=== PATIENT | female | born 1965 | race Caucasian/White ===

== ENCOUNTER 2017-02-02 23:31 | Emergency (ER) | payer MEDICAID ==
[~2017-02-02] VITALS: Ht 165.1 cm; Wt 65.8 kg
[~2017-02-02 23:31] MED LIST: ADVAIR 100-501 EACH INH; ADVAIR 250-501 EACH INH; ADVAIR HFA 45-212 GM INH; AMBIEN10 M1 ORAL; AMITRIPTYLINE75 MG ORAL; ARTIFICIAL TEA1 EAC2 BOTH EYES; CALCIUM500 M3 PO; CLEOCIN150 MG ORAL; CLOZARIL25 MG ORAL; CYMBALTA60 MG ORAL; DIPHENHYDRAMINE25 M1 ORAL; DIVALPROEX SOD500 MG PO; ENEMA TWIN PAC133 ML RC; FLONASE1 SPRAYS; GABAPENTIN600 MG ORAL; KEFLEX500 MG ORAL; LACTULOSE20 GM/301 ORAL; MACROBID100 MG ORAL; METHOCARBAMOL750 MG ORAL; METROGEL-VAGINA70 G1 VAGIN; NORCO 5-325 TA1 EACH ORAL; NORCO 5-325 TA1 EACH PO; ONFI20 MG PO; OSTERA TABLET1 EACH PO; PLAVIX75 MG ORAL; RANITIDINE HCL150 M2 PO; SINGULAIR10 MG ORAL; SPIRIVA18 MCG INH; TRAZODONE HCL50 MG ORAL; TYLENOL650 MG/20. ORAL; VERAPAMIL ER240 M2 PO; VIBRAMYCIN100 MG ORAL; VIMPAT200 MG PO; VITAMIN D400 UNI2 PO; XOPENEX HFA15 GM IH; ZOFRAN4 MG ORAL; aspirin; gabapentin; trazadone; verapamil; zantac
[2017-02-02 23:40] VITALS: BP 124/100
[2017-02-02] MEDS ORDERED: Albuterol ud Inhalation HHN ONE (23:45)
[2017-02-02] MEDS ORDERED: Solu-MEDROL 125mg Inj IVP ONE (23:45)
[2017-02-02] MEDS ORDERED: Racemic EPINEPHrine 2.25% 0.5ml HHN ONE (23:45)
[2017-02-03 00:46] LABS: BASOPHILS % (AUTO) 0.7 % (0.0-2.0); EOSINOPHILS % (AUTO) 1.7 % (0.0-3.0); LYMPHOCYTES % (AUTO) 22.4 % (20.0-45.0); MEAN CORPUSCULAR HEMOGLOBIN 31.4 PG (27.0-31.0); MEAN CORPUSCULAR HGB CONC 34.7 G/DL (32.0-36.0); MEAN CORPUSCULAR VOLUME 91 FL (80-99); MONOCYTES % (AUTO) 7.2 % (1.0-10.0); PLATELET COUNT 439 K/UL (150-450); RED BLOOD COUNT 3.79 M/UL (4.20-5.40); RED CELL DISTRIBUTION WIDTH 12.1 % (11.6-14.8); WHITE BLOOD COUNT 10.8 K/UL (4.8-10.8)
[2017-02-03 00:47] LABS: INR 0.9 (0.9-1.1); PROTHROMBIN TIME 9.8 SEC (9.30-11.50)
[2017-02-03 00:52] LABS: ALANINE AMINOTRANSFERASE 13 U/L (3-33); ALBUMIN/GLOBULIN RATIO 0.8 (1.0-2.7); ANION GAP 16 (5-15); ASPARTATE AMINO TRANSFERASE 12 U/L (5-40); CALCIUM 9.4 mg/dL (8.6-10.2); CARBON DIOXIDE 24 mEQ/L (20-30); CHLORIDE 98 mEQ/L (98-107); CREATININE 0.7 mg/dL (0.5-0.9); GLOMERULAR FILTRATION RATE > 60 mL/min (>60); HEMOLYSIS 2; LIPASE 111 U/L (< 60); POTASSIUM 3.5 mEQ/L (3.4-4.9); SODIUM 138 mEQ/L (135-145); TOTAL PROTEIN 8.2 g/dL (6.6-8.7)
[2017-02-03 00:55] LABS: APPEARANCE,URINE CLEAR; KETONES,URINE NEGATIVE (NEGATIVE); NITRITE,URINE NEGATIVE (NEGATIVE); PH,URINE 7 (4.5-8.0); PROTEIN,URINE NEGATIVE (NEGATIVE); UROBILINOGEN,URINE NORMAL MG/DL (0.0-1.0)
[2017-02-03 01:05] LABS: LEUKOCYTE ESTERASE ,URINE 1+ (NEGATIVE)
[2017-02-03 01:06] LABS: RBC,URINE 0-2 /HPF (0 - 2); SQUAMOUS EPITHELIAL CELL,UR FEW /LPF (NONE/OCC); WBC,URINE 0-2 /HPF (0 - 2)
[2017-02-03] MEDS ORDERED: fentaNYL 100 mcg/2 mL IV ONE (01:15)
[2017-02-03 01:40] VITALS: BP 147/75
[2017-02-03] MEDS ORDERED: cefTRIAXone 1 GM in NS 55 ML IVPB ONE (02:30)
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
[2017-02-03 03:40] VITALS: BP 138/88
[2017-02-03 05:05] VITALS: BP 127/88
--- NOTE | 2017-02-03 09:08 | Diagnostic Imaging Report ---
Indications: Dyspnea, neck pain Technique: Continuous helical CT imaging of the neck from the base of the skull through the aortic arch was performed with automatic exposure control following intravenous administration of nonionic iodine contrast, on a Siemens sensation [address] scanner. Axial, coronal, and sagittal images were reconstructed at 3 mm slice thickness. CTDI volume(s): 18 mGy Total DLP: 460 mGy-cm Findings: Comparison: None Visualized portions of brain: Unremarkable. Orbits: Visualized portions unremarkable. Paranasal sinuses: Right maxillary mucoperiosteal thickening; the remainder of visualized sinuses clear. Nasopharynx: Unremarkable. Oral cavity: Artifact from metallic dental fillings degrades multiple images. Unobscured anatomy unremarkable. Oropharynx: Unremarkable. Epiglottis: Unremarkable. False vocal cords: Unremarkable. True vocal cords: Unremarkable. Subglottic airway: Low attenuation soft tissue mass measuring at least 2 x 1 x 2 cm resides along the left lateral margin just inferior to the level of the cricoid cartilage, resulting in asymmetric mural thickening and luminal narrowing. It may be larger and extend to involve the anterior aspect of the subglottic airway though this is not certain. The mass also abuts the medial margin of the left thyroid lobe as well as the the upper thoracic esophagus, fascial planes between it and the esophagus indistinct. Prevertebral soft tissues: Mild diffuse fullness from level of care for sinuses to level of mass described above, could be contiguous with latter. Bilateral parapharyngeal soft tissues: Unremarkable. Lymph nodes: Normal size, configuration, and enhancement bilaterally. No enlargement. Superficial soft tissues: Unremarkable. Parotid glands: Unremarkable. Submandibular glands: Unremarkable. Thyroid gland: Small nodular calcification in left lobe. Vascular structures: No significant abnormality identified. Skeletal structures: Multilevel disc space narrowing with marginal osteophyte formation, facet sclerosis and hypertrophy in cervical spine. Associated spinal stenosis at C5-6, C6-7. Straightening of lordosis.. Lung apices: Irregular rounded consolidative opacity with air bronchograms in right upper lobe.. Upper mediastinum: Unremarkable. IMPRESSION: At least 2 cm soft tissue mass along left lateral margin of subglottic airway, possibly larger and extending anteriorly, suspicious for neoplasm, exact site of origin indeterminate, could arise from subglottic airway mucosa, adjacent esophagus or thyroid gland.. This results in mild airway narrowing. MRI of the neck without and with gadolinium recommended for further evaluation. Subglottic prevertebral soft tissue fullness may simply represent the upper cervical esophagus. Extension of the aforementioned process not excludable. Right maxillary sinusitis Degenerative spondylosis with spinal stenosis Right pulmonary upper lobe consolidative opacity most compatible with pneumonia. However, in light of above, neoplasm not excluded. Bronchoscopy recommended for further evaluation. Findings discussed with Dr. Smith, ER physician, by telephone at time of this dictation This represents significant discrepancy with [facility] preliminary report. The CT scanner at [facility] is accredited by the [employer] and the scans are performed using protocols designed to limit radiation exposure to as low as reasonably achievable to attain images of sufficient resolution adequate for diagnostic evaluation.
--- NOTE | 2017-02-04 20:07 | Cardiology Report ---
APPROVED REPORT EKG Measurement Heart [id number] Normal sinus rhythm Possible Left atrial enlargement Septal infarct, age undetermined Abnormal ECG
== END 2017-02-03 05:05 | disposition short-term general hospital (02) ==
LOC: EDBD 23:31 → EMR 23:55
DX: J18.9 Pneumonia, unspecified organism (principal); R06.1 Stridor; F15.10 Other stimulant abuse, uncomplicated; I10 Essential (primary) hypertension; J44.9 Chronic obstructive pulmonary disease, unspecified; F17.200 Nicotine dependence, unspecified, uncomplicated; G83.24 Monoplegia of upper limb affecting left nondominant side; G83.21 Monoplegia of upper limb affecting right dominant side; J32.0 Chronic maxillary sinusitis
CPT/HCPCS: 36415; 70491; 71010; 80053; 80300; 81003; 83615; 83690; 83880; 85025; 85610; 85730; 87040; 93005; 94640; 94664; 96374; 96375; 99285; J0696; J1956; J2405; J2930; J3010; Q9967